=== PATIENT | female | born 1990 | race Two or more races ===

== ENCOUNTER 2020-10-02 18:43 | Emergency (ER) | payer SELFPAY ==
[~2020-10-02] VITALS: Ht 170.2 cm; Wt 77.0 kg
[2020-10-02 22:28] VITALS: BP 112/56
== END 2020-10-02 22:59 | disposition home or self-care (01) ==
LOC: ER 18:43
DX: R06.02 Shortness of breath (principal)
CPT/HCPCS: 81025; 93005; 99283